=== PATIENT | female | born 1955 | race Caucasian/White ===

== ENCOUNTER 2017-11-14 21:10 | Observation (INO) | payer MEDICAID, OTHER ==
[2017-11-14 21:21] VITALS: BMI 29.1
--- NOTE | 2017-11-14 21:26 | ED PDOC ---
Arrival/HPI - General Time Seen by Provider: 11/14/17 21:16 Historian: Patient, Spouse, Family - History of Present Illness Narrative History of Present Illness (Text): 11/14/17 21:26 62 year old female, with no significant past medical history, presents to the emergency department accompanied by complaining of "not talking" As per , he reported that they both had an argument and found her not responding to any of his questions He became worried and called the ambulance for her to be evaluated. Daughter arrived and at bedside. Patient is responds to yes or no question. Patient denies any fever, chills, chest pain, shortness of breath, or any other complaints. 11/15/17 03:41 Symptom Onset: Sudden Symptom Course: Unchanged Activities at Onset: Light Context: Home Past Medical History - Provider Review Nursing Documentation Reviewed: Yes - Tetanus Immunization Tetanus Immunization: Unknown - Past Medical History Past Medical History: No Previous - Cardiac Hx Cardiac Disorders: Yes - Pulmonary Hx Respiratory Disorders: No - Neurological Hx Neurological Disorder: No - HEENT Hx HEENT Disorder: No - Renal Hx Renal Disorder: No - Endocrine/Metabolic Hx Endocrine Disorders: Yes Other/Comment: HYPERGLYCEMIA - Hematological/Oncological Hx Blood Disorders: No - Integumentary Hx Dermatological Disorder: No - Musculoskeletal/Rheumatological Hx Musculoskeletal Disorders: Yes - Gastrointestinal Hx Gastrointestinal Disorders: No - Genitourinary/Gynecological Hx Genitourinary Disorders: No - Psychiatric Hx Psychophysiologic Disorder: No Hx Depression: No Hx Emotional Abuse: No Hx Physical Abuse: No Hx Substance Use: No - Surgical History Hx Cholecystectomy: Yes Hx Hysterectomy: Yes - Suicidal Assessment Feels Threatened In Home Enviroment: No Family/Social History - Physician Review Nursing Documentation Reviewed: Yes Family/Social History: No Known Family HX Smoking Status: Never Smoked Hx Alcohol Use: No Hx Substance Use: No Hx Substance Use Treatment: No Allergies/Home Meds Allergies/Adverse Reactions: Allergies No Known Allergies Allergy (Verified 11/14/17 21:30) Review of Systems - Physician Review All systems were reviewed & negative as marked: Yes - Review of Systems Constitutional: absent: Fevers, Other (Chills) Respiratory: absent: SOB Cardiovascular: absent: Chest Pain Physical Exam Vital Signs Reviewed: Yes Vital Signs Temp Pulse Resp BP Pulse Ox 11/15/17 02:50 98.6 F 72 16 136/84 99 11/14/17 21:21 98.1 F 63 18 138/76 98 Temperature: Afebrile Blood Pressure: Normal Pulse: Regular Respiratory Rate: Normal Appearance: Positive for: Well-Appearing, Non-Toxic, Comfortable Pain Distress: None Mental Status: Positive for: other (Alert and answering to yes or no questions) Finger Stick Blood Glucose: 139 - Systems Exam Head: Present: Atraumatic, Normocephalic Pupils: Present: PERRL Extroacular Muscles: Present: EOMI Conjunctiva: Present: Normal Mouth: Present: Moist Mucous Membranes Neck: Present: Normal Range of Motion Respiratory/Chest: Present: Clear to Auscultation, Good Air Exchange. No: Respiratory Distress, Accessory Muscle Use Cardiovascular: Present: Regular Rate and Rhythm, Normal S1, S2. No: Murmurs Abdomen: No: Tenderness, Distention, Peritoneal Signs Back: Present: Normal Inspection Upper Extremity: Present: Normal Inspection. No: Cyanosis, Edema Lower Extremity: Present: Normal Inspection. No: Edema Neurological: Present: GCS=15, CN II-XII Intact, Speech Normal Skin: Present: Warm, Dry, Normal Color. No: Rashes Psychiatric: Present: Alert, Normal Insight, Normal Concentration Medical Decision Making ED Course and Treatment: 11/14/17 21:36 Impression: 62 year old female presents for complaints of feeling depressed and "not talking " after argument with . Patient only answering yes or no questions. strong clinical suspion conversion disorder, doubt cva Plan: -- EKG -- Labs -- Chest X-ray -- Ativan -- Urinalysis -- CT Head w/o contrast -- Reassess and disposition Progress Notes: 11/14/17 21:38 EKG shows NSR at [address]/T wave changes. Interpreted by me. 11/14/17 22:54 On re-evaluation, patient is drinking water with daughter on bedside. Patient was also seen walking to the bathroom. 11/14/17 22:55 CXR Impression: As read by me, negative 11/15/17 12:43 PES work seen and evaluated patient. EXAM: CT Head Without Intravenous Contrast Dictated and Authenticated by: Brad Nielson MD 11/15/2017 1:37 AM IMPRESSION: No evidence of an acute intracranial hemorrhage, midline shift or mass effect is identified. 11/15/17 01:38 Case discussed with neurologist Dr. Dos Santos who is aware and agrees with the plan. 11/15/17 01:49 Case discussed with Cover Mat Machine Operator and Dr. Arango who is aware and agrees with the plan. Accepts patient into hospitalist service. - Lab Interpretations Lab Results: 11/14/17 21:45 11/14/17 21:45 Lab Results 11/14/17 22:19: Urine Opiates Screen Negative, Urine Methadone Screen Negative, Ur Barbiturates Screen Negative, Ur Phencyclidine Scrn Negative, Ur Amphetamines Screen Negative, U Benzodiazepines Scrn Negative, U Oth Cocaine Metabols Negative, U Cannabinoids Screen Negative 11/14/17 22:19: Urine Color Yellow, Urine Appearance Clear, Urine pH 6.5, Ur Specific [place] 1.010, Urine Protein Negative, Urine Glucose (UA) Negative, Urine Ketones Negative, Urine Blood Negative, Urine Nitrate Negative, Urine Bilirubin Negative, Urine Urobilinogen 0.2, Ur Leukocyte Esterase Negative 11/14/17 21:45: Alcohol, Quantitative < 10 11/14/17 21:45: Salicylates < 1 L, Acetaminophen < 10.0 L 11/14/17 21:45: Sodium 140, Potassium 3.7, Chloride 103, Carbon Dioxide 25, Anion Gap 16, BUN 17, Creatinine 0.5 L, Est GFR ( Amer) > 60, Est GFR ( Non-Af Amer) > 60, Random Glucose 131 H, Calcium 9.4, Magnesium 2.3 H, Total Bilirubin 0.5, AST 20, ALT 38, Alkaline Phosphatase 78, Total Protein 7.4, Albumin 4.2, Globulin 3.2, Albumin/Globulin Ratio 1.3 11/14/17 21:45: WBC 5.5, RBC 4.72, Hgb 13.0, Hct 39.4, MCV 83.5, MCH 27.5, MCHC 33.0, RDW 13.5, Plt Count 258, MPV 10.1, Gran % 37.8 L, Lymph % (Auto) 52.3 H, [place] % (Auto) 6.2 H, Eos % (Auto) 3.3, Baso % (Auto) 0.4, Gran # 2.07, Lymph # ( Auto) 2.9, [place] # (Auto) 0.3, Eos # (Auto) 0.2, Baso # (Auto) 0.02 11/14/17 21:17: POC Glucose (mg/dL) 139 H I have reviewed the lab results: Yes - RAD Interpretation Radiology Orders: 11/14/17 21:24 CHEST PORTABLE [RAD] Stat 11/15/17 00:34 HEAD W/O CONTRAST [CT] Stat - EKG Interpretation Interpreted by ED Physician: Yes Type: 12 lead EKG - Medication Orders Current Medication Orders: Discontinued Medications Acetaminophen (Tylenol 325mg Tab) 650 mg PO Q6H PRN PRN Reason: Fever >100.4 F Last Admin: 11/15/17 21:29 Dose: 650 mg MAR Pain/Vitals Document 11/15/17 21:29 LGA (Rec: 11/15/17 21:30 LGA [id number]) Pain Reassessment Is This A Pain ReAssessment? Yes Sleep Is patient sleeping during reassessment? No Presence of Pain Presence of Pain Yes Location Left, Right or Bilateral Left Pain Location Body Site Shoulder Description Intermittent Scale Used Numeric Pain Behavior Rubbing Site Restlessness Aggravating Factors Changing Position Alleviating Factors Medication Aspirin (Aspirin) 325 mg PO STAT STA Stop: 11/15/17 01:52 Last Admin: 11/15/17 02:08 Dose: 325 mg Aspirin (Ecotrin) 81 mg PO DAILY [facility] Last Admin: 11/16/17 10:08 Dose: 81 mg Famotidine (Pepcid) 20 mg PO DAILY [facility] Last Admin: 11/16/17 10:08 Dose: 20 mg Sodium Chloride (Sodium Chloride 0.9%) 1,000 mls @ 100 mls/hr IV .Q10H [facility] Last Admin: 11/16/17 10:08 Dose: 100 mls/hr eMAR Start Stop Document 11/16/17 10:08 CD (Rec: 11/16/17 10:08 CD [id number]) Intravenous Solution Start Date 11/16/17 Start Time 10:08 Ibuprofen (Motrin Tab) 400 mg PO STAT STA Stop: 11/16/17 15:35 Last Admin: 11/16/17 17:07 Dose: Not Given Non-Admin Reason: Patient Refused Lorazepam (Ativan) 0.5 mg PO ONCE ONE PRN Reason: Protocol Stop: 11/14/17 21:42 Last Admin: 11/14/17 21:48 Dose: 0.5 mg Lorazepam (Ativan) 1 mg IVP ONCE STA PRN Reason: Protocol Stop: 11/15/17 13:36 Last Admin: 11/15/17 14:29 Dose: 1 mg IVP Administration Document 11/15/17 14:29 CD (Rec: 11/15/17 14:29 CD [id number]) Charges for Administration # of IVP Administrations 1 Behavioural Document 11/15/17 14:29 CD (Rec: 11/15/17 14:29 CD [id number]) Behavior Behavior for Medication: Anxiety Continuous pacing/restlessness Re-Assess: Reassess Psych Meds Document 11/15/17 14:59 CD (Rec: 11/15/17 16:00 CD [id number]) Reassess Psych Med Effective Lorazepam (Ativan) 0.5 mg PO BID JAVIER PRN Reason: Protocol Last Admin: 11/16/17 10:08 Dose: 0.5 mg Behavioural Document 11/16/17 10:08 CD (Rec: 11/16/17 10:08 CD [id number]) Nonmedicinal Nonmedicinal Interventions Therapeutic Communication Behavior Behavior for Medication: Anxiety Re-Assess: Reassess Psych Meds Document 11/16/17 11:08 CD (Rec: 11/16/17 11:20 CD [id number]) Reassess Psych Med Effective NIHSS Scale ([place]) Time Performed: 03:42 - How Severe is the [place]oke Baseline Level of Consciousness: 0=Alert LOC to Questions: 0=Both comments correct LOC to commands: 0=Obeys both correctly Best Gaze: 0=Normal Visual: 0=No visual loss Facial: 0=Normal Motor Arm - Left: 0=No drift Motor Arm - Right: 0=No drift Motor Leg - Left: 0=No drift Motor Leg - Right: 0=No drift Limb Ataxia: 0=Absent Sensory: 0=Normal Best Language: 3=Mute Dysarthia: 0=Normal articulation Extinction & Inattention (Neglect): 0=Normal, no object Score: 3 Risk Level: Minor Stroke Risk rTPA Inclusion/Exclusion - Refusal of Treatment Patient Refused Treatment: No - Inclusion Criteria for Altepase Patient is 18 years or Older: Yes The Clinical Diagnosis of Ischemic Stroke That is Causing a Potentially Disabling Neurological Deficit: No Time of Onset is Well Established to be Less Than 270 Minute Before Treatment Would Begin: Yes Risk/Benefit Discussed With Patient/Family Member Present: No - Scribe Statement The provider has reviewed the documentation as recorded by the Sara Mora Provider Scribe Attestation: All medical record entries made by the Scribe were at my direction and personally dictated by me. I have reviewed the chart and agree that the record accurately reflects my personal performance of the history, physical exam, medical decision making, and the department course for this patient. I have also personally directed, reviewed, and agree with the discharge instructions and disposition. Disposition/Present on Arrival - Present on Arrival Any Indicators Present on Arrival: No History of DVT/PE: No History of Uncontrolled Diabetes: No Urinary Catheter: No History Surgical Site Infection Following: None - Disposition Have Diagnosis and Disposition been Completed?: Yes Diagnosis: Aphasia, Conversion disorder Disposition: HOSPITALIZED Disposition Time: 02:00 Condition: GOOD
[2017-11-14 22:06] LABS: ACETAMINOPHEN < 10.0 ug/ml (10.0-20.0); BASO # 0.02 K/mm3 (0.0-2.0); BASO % 0.4 % (0.0-3.0); EOS # 0.2 (0.0-0.7); EOS % 3.3 % (1.5-5.0); GRAN # 2.07 (1.4-6.5); GRAN % 37.8 % (50.0-68.0); LYMPH # 2.9 (1.2-3.4); LYMPH % 52.3 % (22.0-35.0); MEAN CELL VOLUME 83.5 fl (80.0-105.0); MEAN CORPUSCULAR HEMOGLOBIN 27.5 pg (25.0-35.0); MEAN PLATELET VOLUME 10.1 fl (7.0-11.0); MONO # 0.3 (0.1-0.6); MONO % 6.2 % (1.0-6.0); RBC 4.72 10^6/uL (3.5-6.1); RED CELL DISTRIBUTION WIDTH 13.5 % (11.5-14.5); SALICYLATE < 1 mg/dL (2.0-20.0); WHITE BLOOD COUNT 5.5 10^3/ul (4.5-11.0)
[2017-11-14 22:07] LABS: ALB/GLOB RATIO 1.3 (1.1-1.8); ALBUMIN 4.2 g/dL (3.0-4.8); ALT/SGPT 38 U/L (7-56); AST/SGOT 20 U/L (14-36); BLOOD UREA NITROGEN 17 mg/dL (7-21); CALCIUM 9.4 mg/dL (8.4-10.5); GFR AFRICAN-AMERICAN > 60; GFR NON-AFRICAN AMERICAN > 60
[2017-11-14 22:24] LABS: PH,URINE 6.5 (4.7-8.0); URINE BILIRUBIN NEGATIVE (NEGATIVE); URINE BLOOD NEGATIVE (NEGATIVE); URINE GLUCOSE (UA) NEGATIVE (NEGATIVE); URINE LEUKOCYTE ESTERASE NEGATIVE Leu/uL (NEGATIVE); URINE PROTEIN NEGATIVE mg/dL (<30 mg/dL); URINE UROBILINOGEN 0.2 E.U./dL (<1 E.U./dL)
[2017-11-14 22:41] LABS: URINE APPEARANCE CLEAR (CLEAR); URINE COLOR YELLOW (YELLOW)
[2017-11-14 22:45] LABS: BARBITURATES, UR NEGATIVE (NEGATIVE); BENZODIAZEPINES, UR NEGATIVE (NEGATIVE); OPIATES, UR NEGATIVE (NEGATIVE); PHENCYCLIDINE, UR NEGATIVE (NEGATIVE)
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
[2017-11-15] MEDS: Sodium Chloride 0.9% 1,000 ML IV SCH ×2 (04:05→14:33)
[2017-11-15 06:43] VITALS: O2SAT 98
[2017-11-15 07:49] LABS: HEMOGLOBIN 11.7 g/dL (12.0-16.0); MEAN CELL VOLUME 83.3 fl (80.0-105.0); MEAN CORPUSCULAR HEMOGLOBIN 27.1 pg (25.0-35.0); MEAN CORPUSCULAR HGB CONC 32.6 g/dl (31.0-37.0); MEAN PLATELET VOLUME 10.2 fl (7.0-11.0); RBC 4.31 10^6/uL (3.5-6.1); RED CELL DISTRIBUTION WIDTH 13.6 % (11.5-14.5); WHITE BLOOD COUNT 4.6 10^3/ul (4.5-11.0)
[2017-11-15 08:01] LABS: ALB/GLOB RATIO 1.3 (1.1-1.8); ALBUMIN 3.5 g/dL (3.0-4.8); ALT/SGPT 30 U/L (7-56); AST/SGOT 20 U/L (14-36); BLOOD UREA NITROGEN 13 mg/dL (7-21); CALCIUM 8.9 mg/dL (8.4-10.5); GFR AFRICAN-AMERICAN > 60; GFR NON-AFRICAN AMERICAN > 60; HDL CHOLESTEROL 44 mg/dL (29-60)
[2017-11-15 08:08] LABS: LDL CHOLESTEROL 147 mg/dL (0-129)
--- NOTE | 2017-11-15 08:26 | CARD ---
APPROVED REPORT Date of service: 11/14/2017 EKG Measurement Heart [id number] <Conclusion> Normal sinus rhythm Nonspecific ST abnormality Abnormal ECG
--- NOTE | 2017-11-15 08:41 | RAD ---
Date of service: 11/14/2017 HISTORY: psych COMPARISON: 07/03/2013. FINDINGS: LUNGS: The lungs are well inflated and clear. PLEURA: No significant pleural effusion identified, no pneumothorax apparent. CARDIOVASCULAR: There is mild cardiomegaly. OSSEOUS STRUCTURES: No significant abnormalities. VISUALIZED UPPER ABDOMEN: Normal. OTHER FINDINGS: None. IMPRESSION: No active pulmonary disease.
--- NOTE | 2017-11-15 09:06 | CT ---
Date of service: 11/15/2017 PROCEDURE: CT HEAD WITHOUT CONTRAST. HISTORY: ams COMPARISON: None available. TECHNIQUE: Axial computed tomography images were obtained through the head/brain without intravenous contrast. Radiation dose: Total exam DLP = 846 mGy-cm. This CT exam was performed using one or more of the following dose reduction techniques: Automated exposure control, adjustment of the mA and/or kV according to patient size, and/or use of iterative reconstruction technique. FINDINGS: HEMORRHAGE: No intracranial hemorrhage. BRAIN: No mass effect or edema. No atrophy or chronic microvascular ischemic changes. VENTRICLES: Unremarkable. No hydrocephalus. CALVARIUM: Unremarkable. PARANASAL SINUSES: Unremarkable as visualized. No significant inflammatory changes. MASTOID AIR CELLS: Unremarkable as visualized. No inflammatory changes. OTHER FINDINGS: The report concurs with the preliminary [facility] report IMPRESSION: No acute findings
--- NOTE | 2017-11-15 10:39 | MRI ---
Date of service: 11/15/2017 PROCEDURE: MRI BRAIN WITHOUT CONTRAST HISTORY: aphasia COMPARISON: Noncontrast head CT from 11/15/2017 TECHNIQUE: Multiplanar, multisequence MR images of the brain were obtained without intravenous contrast enhancement. FINDINGS: HEMORRHAGE: None DWI: No evidence of an acute or early subacute infarction. BRAIN PARENCHYMA: Andrade-white matter differentiation is preserved. There is no mass, mass effect or abnormal extra-axial fluid collection. There is no territorial infarction. The midline sagittal structures are normal. VENTRICLES: There is mild age-related global parenchymal volume loss and proportionate enlargement of the ventricles and cortical sulci. CRANIUM: There is normal bone marrow signal pattern. ORBITS: Grossly unremarkable. PARANASAL SINUSES/MASTOIDS: Predominantly clear. VASCULAR SYSTEM: There are normal signal voids in the larger intracranial arteries. OTHER FINDINGS: None. IMPRESSION: No acute intracranial abnormality. Mild age-related global parenchymal volume loss.
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
--- NOTE | 2017-11-15 21:40 | CARD ---
APPROVED REPORT Date of service: 11/15/2017 EXAM: Two-dimensional and M-mode echocardiogram with Doppler and color Doppler. INDICATION Syncope 2D DIMENSIONS Left Atrium (2D)3.9 (1.6-4.0cm)IVSd1.0 (0.7-1.1cm) LVDd4.0 (3.9-5.9cm)PWd1.0 (0.7-1.1cm) LVDs2.6 (2.5-4.0cm)FS (%) 35.5 % LVEF (%)65.5 (>50%) M-Mode DIMENSIONS Aortic Root3.40 (2.2-3.7cm)Aortic Cusp Exc.1.90 (1.5-2.0cm) Aortic Valve AoV Peak Nkgykzbn943.0cm/Yonatan Peak GR.7mmHg Mitral Valve MV E Tqxwgelh00.5cm/sMV A Zsrxjurn70.9cm/sE/A ratio0.9 TDI Lateral E' Peak V10.40cm/sMedial E' Peak V6.92cm/sE/Lateral E'6.6 E/Medial E'9.9 Tricuspid Valve TR Peak Olvvofcu562eg/sRAP KGDJQAAN90soNiAN Peak Gr.23mmHg [id number] LEFT VENTRICLE The left ventricle is normal size. There is normal left ventricular wall thickness. The left ventricular function is normal. The left ventricular ejection fraction is within the normal range. There is normal LV segmental wall motion. Transmitral Doppler flow pattern is Grade I-abnormal relaxation pattern. RIGHT VENTRICLE The right ventricle is normal size. There is normal right ventricular wall thickness. The right ventricular systolic function is normal. ATRIA The left atrium size is normal. The right atrium size is normal. AORTIC VALVE The aortic valve is thickened but opens well. No aortic regurgitation is present. There is no aortic valvular stenosis. MITRAL VALVE The mitral valve is normal in structure. Mitral regurgitation is trace. There is no mitral valve stenosis. TRICUSPID VALVE The tricuspid valve is normal in structure. There is trace to mild tricuspid regurgitation. GREAT VESSELS The aortic root is normal in size. The IVC is normal in size and collapses >50% with inspiration. PERICARDIAL EFFUSION There is a trace loculated anterior pericardial effusion. <Conclusion> The left ventricle is normal size. There is normal left ventricular wall thickness. The left ventricular function is normal. The left ventricular ejection fraction is within the normal range. There is normal LV segmental wall motion. Transmitral Doppler flow pattern is Grade I-abnormal relaxation pattern. There is trace to mild tricuspid regurgitation.
--- NOTE | 2017-11-16 00:59 | CON ---
Copied To: Hayley De Leon MD Attending MD: Hayley De Leon MD DATE: 11/15/2017 HISTORY OF PRESENT ILLNESS: In short, the patient is 62-year-old female from [place]. The patient was brought in by her for evaluation of not talking secondary to argument. The patient was not responding to any questions and family became worried and brought the patient to the hospital. Psych consult was called for evaluation of such behavior. This clinical writer attempted to speak to the patient. The patient was found to be laying in bed, not moving with eyes closed. The patient was able to open her eyes for short period of time and closing them back. The patient was communicating with this clinical writer yes, no answers by nodding her head. This clinical writer asked permission to talk to her family. The patient's and patient's son, Kenyon was next to the patient. As per family, the patient was upset over the fact that her son in getting through divorce and she was not able to see her two grandsons that often, last time pt saw her grand kids was February 2017, over the weekend two grandson visited her and pt was very happy to see them. The patient never verbalized any thoughts of harming herself. The patient did not verbalize that she is depressed. The patient was stressed out about the fact that she lost her insurance and it was not renewed, but acting as her normal behavior up until yesterday evening. The patient does not have any history of mental illness. The patient does not have history of suicidal attempts. She is not taking any drugs. The patient is very active in the community. She goes to denominational. Also, the patient goes to adult day treatment program here in [place] from 9 o'clock till 1:30 as per family. PHYSICAL EXAMINATION: VITAL SIGNS: This clinical writer reviewed vital signs, seems to be stable. Temperature 97.9, pulse is 53, blood pressure 133/94, respiration 18, oxygen saturation is 94. MEDICATIONS: Reviewed. LABORATORY DATA: Reviewed. TSH is 11.3. Urinalysis negative. Toxicology is negative. Reports reviewed. Brain MRI within normal limits. Head CT scan within normal limits. Echocardiogram was done, but there is no result back yet. Electrocardiogram within normal limits. Nonspecific ST abnormalities. CT and MRI of the head WNL. MENTAL STATUS EXAMINATION: As this clinical writer described above. IMPRESSION: This clinical writer had prolonged conversation with Dr. Dickson. The patient seems to be in acute catatonia which could be related to stress or medical issues, TSH was elevated. Plan: This clinical writer advised to give IV push of Ativan 1 mg to r/o catatonia, Within 1 hour after ativan was given patient started to talk, ask for food. Most likely the patient had acute catatonia due to stress or medical issues which is my differential diagnosis. Advised endocrinology involvement, as well as neurology involvement but it is up to the medical team. We will reassess the patient tomorrow and advise accordingly. As of now, the patient does not meet the criteria to be admitted to the Psychiatric Inpatient Unit. If the patient requires, we will give information about outpatient clinics in the community. The patient's son, phone number is [phone]. His name is Kenyon. Collaterals are appreciated. Should you have any questions give me a call back. We will follow up and advise accordingly. Hayley De Leon MD SHAYY
[2017-11-16] MEDS: Sodium Chloride 0.9% 1,000 ML IV SCH ×2 (03:01→10:08)
[2017-11-16 03:10] VITALS: RESP 16
[2017-11-16 06:20] LABS: HEMOGLOBIN 11.6 g/dL (12.0-16.0); MEAN CELL VOLUME 84.4 fl (80.0-105.0); MEAN PLATELET VOLUME 9.9 fl (7.0-11.0); RBC 4.29 10^6/uL (3.5-6.1); RED CELL DISTRIBUTION WIDTH 13.7 % (11.5-14.5); WHITE BLOOD COUNT 3.9 10^3/ul (4.5-11.0)
[2017-11-16 07:49] LABS: ALB/GLOB RATIO 1.2 (1.1-1.8); ALBUMIN 3.2 g/dL (3.0-4.8); BLOOD UREA NITROGEN 14 mg/dL (7-21); CALCIUM 8.3 mg/dL (8.4-10.5); GFR AFRICAN-AMERICAN > 60; GFR NON-AFRICAN AMERICAN > 60
[2017-11-16 07:50] LABS: ALT/SGPT 26 U/L (7-56); AST/SGOT 20 U/L (14-36)
[2017-11-16 12:03] VITALS: BP 144/83; PULSE 63; TEMP 98.1
--- NOTE | 2017-11-16 13:43 | PN ---
Copied To: Hayley De Leon MD Attending MD: Hayley De Leon MD DATE: 11/16/2017 SUBJECTIVE: The patient was followed up. The patient presented much better to compare with yesterday. The patient is moving. The patient is able to talk and communicate her needs, but the patient still has some psychomotor retardation for what this law writer will start 0.5 mg of Ativan, 2 mg scheduled. The patient was interviewed today. The patient was able to communicate her needs. The patient reported that she feels better. The patient denied feeling depressed. Denied thoughts of harming herself or others. Denied intent or plan. The patient denied previous history of mental illness. Denied feeling depressed or denied history of suicidal attempts in the past. VITAL SIGNS: Stable. Temperature 98.4, pulse is 68, blood pressure 101/64, respiration 16, oxygen saturation is 98. MEDICATIONS: Reviewed. Tylenol, aspirin, Pepcid, Ativan 0.5 mg twice a day scheduled, and sodium chloride. Risk, benefits and alternatives discussed with the patient. LABORATORY DATA: Reviewed. WBC cells 3.9 today. TSH 11.3. The rest seems to be within normal limits. Toxicology negative. MENTAL STATUS EXAMINATION: As this law writer described above, the patient is alert and oriented, pleasant, cooperative. Speech is faster to compare with yesterday, but the patient still has psychomotor retardation. The patient denied feeling depressed. Denied thoughts of harming herself or others. Denied intent or plan. Mood described, "I feel better." Affect is more reactive, mood congruent. Thought process coherent and goal directed. Thought content, the patient denied visual, auditory, or tactile hallucinations. The patient denied thoughts of harming herself or others. The patient does not present in difficulty. IMPRESSION: The patient presented with acute catatonia, which is improving on small dose of Ativan. Ativan 0.5 mg twice a day scheduled. Risk, benefits and alternatives discussed with the patient. We will follow up and advise accordingly. Endocrinology consult recommended. Neurologist saw the patient. The patient is not in any imminent danger to self or others. Should you have any questions give me a call back. Thank you very much. Hayley De Leon, MD : 11/16/2017 10:03:36 [facility] # [id number]
--- NOTE | 2017-11-16 14:48 | RAD ---
Date of service: 11/16/2017 PROCEDURE: Radiographs of the Left Shoulder HISTORY: L shoulder pain COMPARISON: No prior. FINDINGS: BONES: Normal. No fracture. JOINTS: Normal. Glenohumeral and acromioclavicular joints preserved. No osteoarthritis. SOFT TISSUES: Normal. OTHER FINDINGS: None. IMPRESSION: Normal radiographs of the left shoulder.
--- NOTE | 2017-11-16 15:36 | CP.PCM.DIS ---
<Tyrone Moss - Last Filed: 11/16/17 21:19> Provider - Provider Date of Admission: 11/15/17 01:51 Attending physician: Allie Dickson MD Primary care physician: Costa Jensen MD Consults: Neuro- Dr. Dos Santos Psych - Dr. Mccrary Time Spent in preparation of Discharge (in minutes): 45 Hospital Course - Lab Results Lab Results: Most Recent Lab Values WBC 3.9 10^3/ul (4.5-11.0) L 11/16/17 05:25 RBC 4.29 10^6/uL (3.5-6.1) 11/16/17 05:25 Hgb 11.6 g/dL (12.0-16.0) L 11/16/17 05:25 Hct 36.2 % (36.0-48.0) 11/16/17 05:25 MCV 84.4 fl (80.0-105.0) 11/16/17 05:25 MCH 27.0 pg (25.0-35.0) 11/16/17 05:25 MCHC 32.0 g/dl (31.0-37.0) 11/16/17 05:25 RDW 13.7 % (11.5-14.5) 11/16/17 05:25 Plt Count 222 10^3/uL (120.0-450.0) 11/16/17 05:25 MPV 9.9 fl (7.0-11.0) 11/16/17 05:25 Gran % 37.8 % (50.0-68.0) L 11/14/17 21:45 Lymph % (Auto) 52.3 % (22.0-35.0) H 11/14/17 21:45 Gage % (Auto) 6.2 % (1.0-6.0) H 11/14/17 21:45 Eos % (Auto) 3.3 % (1.5-5.0) 11/14/17 21:45 Baso % (Auto) 0.4 % (0.0-3.0) 11/14/17 21:45 Gran # 2.07 (1.4-6.5) 11/14/17 21:45 Lymph # (Auto) 2.9 (1.2-3.4) 11/14/17 21:45 Gage # (Auto) 0.3 (0.1-0.6) 11/14/17 21:45 Eos # (Auto) 0.2 (0.0-0.7) 11/14/17 21:45 Baso # (Auto) 0.02 K/mm3 (0.0-2.0) 11/14/17 21:45 Sodium 142 mmol/L (132-148) 11/16/17 05:25 Potassium 4.0 mmol/L (3.6-5.0) 11/16/17 05:25 Chloride 110 mmol/L (98-107) H 11/16/17 05:25 Carbon Dioxide 23 mmol/L (21-33) 11/16/17 05:25 Anion Gap 13 (10-20) 11/16/17 05:25 BUN 14 mg/dL (7-21) 11/16/17 05:25 Creatinine 0.5 mg/dl (0.7-1.2) L 11/16/17 05:25 Est GFR ( Amer) > 60 11/16/17 05:25 Est GFR (Non-Af Amer) > 60 11/16/17 05:25 POC Glucose (mg/dL) 139 mg/dL (65-110) H 11/14/17 21:17 Random Glucose 102 mg/dL (70-110) 11/16/17 05:25 Hemoglobin A1c 6.0 % (4.2-6.5) 11/15/17 03:00 Calcium 8.3 mg/dL (8.4-10.5) L 11/16/17 05:25 Phosphorus 3.7 mg/dL (2.5-4.5) 11/16/17 05:25 Magnesium 2.0 mg/dL (1.7-2.2) 11/16/17 05:25 Total Bilirubin 0.3 mg/dL (0.2-1.3) 11/16/17 05:25 AST 20 U/L (14-36) 11/16/17 05:25 ALT 26 U/L (7-56) 11/16/17 05:25 Alkaline Phosphatase 65 U/L (38-126) 11/16/17 05:25 Total Protein 5.9 g/dL (5.8-8.3) 11/16/17 05:25 Albumin 3.2 g/dL (3.0-4.8) 11/16/17 05:25 Globulin 2.7 gm/dL 11/16/17 05:25 Albumin/Globulin Ratio 1.2 (1.1-1.8) 11/16/17 05:25 Triglycerides 110 mg/dL (35-160) 11/15/17 07:00 Cholesterol 232 mg/dL (130-200) H 11/15/17 07:00 LDL Cholesterol Direct 147 mg/dL (0-129) H 11/15/17 07:00 HDL Cholesterol 44 mg/dL (29-60) 11/15/17 07:00 Free T4 0.90 ng/dL (0.78-2.19) 11/15/17 08:38 TSH 3rd Generation 11.30 mIU/mL (0.46-4.68) H 11/15/17 07:00 Urine Color Yellow (YELLOW) 11/14/17 22:19 Urine Appearance Clear (CLEAR) 11/14/17 22:19 Urine pH 6.5 (4.7-8.0) 11/14/17 22:19 Ur Specific [place] 1.010 (1.005-1.035) 11/14/17 22:19 Urine Protein Negative mg/dL (<30 mg/dL) 11/14/17 22:19 Urine Glucose (UA) Negative mg/dL (NEGATIVE) 11/14/17 22:19 Urine Ketones Negative mg/dL (NEGATIVE) 11/14/17 22:19 Urine Blood Negative (NEGATIVE) 11/14/17 22:19 Urine Nitrate Negative (NEGATIVE) 11/14/17 22:19 Urine Bilirubin Negative (NEGATIVE) 11/14/17 22:19 Urine Urobilinogen 0.2 E.U./dL (<1 E.U./dL) 11/14/17 22:19 Ur Leukocyte Esterase Negative Cam/uL (NEGATIVE) 11/14/17 22:19 Salicylates < 1 mg/dL (2.0-20.0) L 11/14/17 21:45 Urine Opiates Screen Negative (NEGATIVE) 11/14/17 22:19 Urine Methadone Screen Negative (NEGATIVE) 11/14/17 22:19 Acetaminophen < 10.0 ug/ml (10.0-20.0) L 11/14/17 21:45 Ur Barbiturates Screen Negative (NEGATIVE) 11/14/17 22:19 Ur Phencyclidine Scrn Negative (NEGATIVE) 11/14/17 22:19 Ur Amphetamines Screen Negative (NEGATIVE) 11/14/17 22:19 U Benzodiazepines Scrn Negative (NEGATIVE) 11/14/17 22:19 U Oth Cocaine Metabols Negative (NEGATIVE) 11/14/17 22:19 U Cannabinoids Screen Negative (NEGATIVE) 11/14/17 22:19 Alcohol, Quantitative < 10 mg/dL (0-10) 11/14/17 21:45 - Hospital Course Hospital Course: Tyrone Moss, PGY-1 Discharge Summary for Hospitalist Service HPI: Ms. Salazar is a 62 yo Persian speaking female with no PMH who presents to ED for not being able to speak or communicate properly. Patient was accompanied by who reported that they both had an argument, after which he left and when he came back, he found her not responding to any of his questions. He became worried and called the ambulance for her to be evaluated. Patient is currently not responding to questions, only yes/no questions when asked by the daughter who is at bedside. The patient is complaining of right shoulder and hip pain, as well as a headache. The daughter is unsure of any medical history that the patient has, or medications that she should be on. Hospital Course: 62 y.o. F with HLD, HTN, and borderline diabetes mellitus 2 without medications who was admitted to the hospital status post an argument at home, at which point the patient was awake and alert but unable to verbally respond to initiation from others. Orthostatics at that time were negative. Initial CT shows no acute abnormalities. Neurology was consulted. For patient's acute aphasia, UDS was ordered, which came back positive only for salicylates and acetaminophen. Neuro checks and fall risks were put in place as well. MRI brain showed no acute intracranial abnormalities other than age related global parenchymal volume loss. Neuro labeled symptoms as likely conversion disorder. Considering cardiac as an etiology of the symptoms, echo was ordered and showed an EF of 65.5% with mild tricuspid regurgitation. Psych was consulted and patient was classified as having catatonic episodes. Patient was started on Ativan per psych recommendations. Patient complained of L shoulder pain, and shoulder x-ray was ordered. Report shows no acute fractures or disease, and patient was given Motrin which brought relief. HBa1c was ordered to get baseline sugar control and was found to be 6.0. A lipid panel was ordered as well and showed cholesterol 232, LDL 147, HDL 44 Patient is hemodynamically stable and neurology workup has been completed. All questions were answered to patient's and family satisfaction, and patient was prepared for discharge with medications and instructions for follow up. Patient seen, case reviewed and plan discussed with Dr. Dickson. Tyrone Moss, PGY-1 Discharge Exam - Head Exam Head Exam: NORMAL INSPECTION, NORMOCEPHALIC - Eye Exam Eye Exam: EOMI, Normal appearance Pupil Exam: PERRL - ENT Exam ENT Exam: Mucous Membranes Moist Discharge Plan - Discharge Medications Prescriptions: Aspirin [Ecotrin] 81 mg PO DAILY #30 tabec Atorvastatin Calcium [Lipitor] 20 mg PO DAILY #30 tablet LORazepam [Ativan] 0.5 mg PO BID #4 tab - Follow Up Plan Condition: GOOD Disposition: HOME/ ROUTINE Patient education suggested?: Yes Instructions: Aphasia (DC), Shoulder Pain (DC) Additional Instructions: FOLLOW UP WITH Dr. Jensen WITHIN 1 WEEK. Patient should follow up with Dr. Melendez psychiatrist for continued evaluation. TAKE MOTRIN FOR SHOULDER PAIN NEEDED. Patient was given prescription for statin, aspirin, and Ativan 0.5 mg PO BID for 2 more days for catatonic episode. Patient educated with family regarding hospital course and all questions were answered. If symptoms reoccur or worsen, please return to nearest emergency department. Referrals: Costa Jensen MD [Primary Care Provider] - Follow up with primary Pilar Melendez MD [Staff Provider] - <Allie Dickson - Last Filed: 11/17/17 16:28> Provider - Provider Date of Admission: 11/15/17 01:51 Attending physician: Allie Dickson MD Primary care physician: Costa Jensen MD Hospital Course - Lab Results Lab Results: Most Recent Lab Values WBC 3.9 10^3/ul (4.5-11.0) L 11/16/17 05:25 RBC 4.29 10^6/uL (3.5-6.1) 11/16/17 05:25 Hgb 11.6 g/dL (12.0-16.0) L 11/16/17 05:25 Hct 36.2 % (36.0-48.0) 11/16/17 05:25 MCV 84.4 fl (80.0-105.0) 11/16/17 05:25 MCH 27.0 pg (25.0-35.0) 11/16/17 05:25 MCHC 32.0 g/dl (31.0-37.0) 11/16/17 05:25 RDW 13.7 % (11.5-14.5) 11/16/17 05:25 Plt Count 222 10^3/uL (120.0-450.0) 11/16/17 05:25 MPV 9.9 fl (7.0-11.0) 11/16/17 05:25 Gran % 37.8 % (50.0-68.0) L 11/14/17 21:45 Lymph % (Auto) 52.3 % (22.0-35.0) H 11/14/17 21:45 Gage % (Auto) 6.2 % (1.0-6.0) H 11/14/17 21:45 Eos % (Auto) 3.3 % (1.5-5.0) 11/14/17 21:45 Baso % (Auto) 0.4 % (0.0-3.0) 11/14/17 21:45 Gran # 2.07 (1.4-6.5) 11/14/17 21:45 Lymph # (Auto) 2.9 (1.2-3.4) 11/14/17 21:45 Gage # (Auto) 0.3 (0.1-0.6) 11/14/17 21:45 Eos # (Auto) 0.2 (0.0-0.7) 11/14/17 21:45 Baso # (Auto) 0.02 K/mm3 (0.0-2.0) 11/14/17 21:45 Sodium 142 mmol/L (132-148) 11/16/17 05:25 Potassium 4.0 mmol/L (3.6-5.0) 11/16/17 05:25 Chloride 110 mmol/L (98-107) H 11/16/17 05:25 Carbon Dioxide 23 mmol/L (21-33) 11/16/17 05:25 Anion Gap 13 (10-20) 11/16/17 05:25 BUN 14 mg/dL (7-21) 11/16/17 05:25 Creatinine 0.5 mg/dl (0.7-1.2) L 11/16/17 05:25 Est GFR ( Amer) > 60 11/16/17 05:25 Est GFR (Non-Af Amer) > 60 11/16/17 05:25 POC Glucose (mg/dL) 139 mg/dL (65-110) H 11/14/17 21:17 Random Glucose 102 mg/dL (70-110) 11/16/17 05:25 Hemoglobin A1c 6.0 % (4.2-6.5) 11/15/17 03:00 Calcium 8.3 mg/dL (8.4-10.5) L 11/16/17 05:25 Phosphorus 3.7 mg/dL (2.5-4.5) 11/16/17 05:25 Magnesium 2.0 mg/dL (1.7-2.2) 11/16/17 05:25 Total Bilirubin 0.3 mg/dL (0.2-1.3) 11/16/17 05:25 AST 20 U/L (14-36) 11/16/17 05:25 ALT 26 U/L (7-56) 11/16/17 05:25 Alkaline Phosphatase 65 U/L (38-126) 11/16/17 05:25 Total Protein 5.9 g/dL (5.8-8.3) 11/16/17 05:25 Albumin 3.2 g/dL (3.0-4.8) 11/16/17 05:25 Globulin 2.7 gm/dL 11/16/17 05:25 Albumin/Globulin Ratio 1.2 (1.1-1.8) 11/16/17 05:25 Triglycerides 110 mg/dL (35-160) 11/15/17 07:00 Cholesterol 232 mg/dL (130-200) H 11/15/17 07:00 LDL Cholesterol Direct 147 mg/dL (0-129) H 11/15/17 07:00 HDL Cholesterol 44 mg/dL (29-60) 11/15/17 07:00 Free T4 0.90 ng/dL (0.78-2.19) 11/15/17 08:38 TSH 3rd Generation 11.30 mIU/mL (0.46-4.68) H 11/15/17 07:00 Urine Color Yellow (YELLOW) 11/14/17 22:19 Urine Appearance Clear (CLEAR) 11/14/17 22:19 Urine pH 6.5 (4.7-8.0) 11/14/17 22:19 Ur Specific [place] 1.010 (1.005-1.035) 11/14/17 22:19 Urine Protein Negative mg/dL (<30 mg/dL) 11/14/17 22:19 Urine Glucose (UA) Negative mg/dL (NEGATIVE) 11/14/17 22:19 Urine Ketones Negative mg/dL (NEGATIVE) 11/14/17 22:19 Urine Blood Negative (NEGATIVE) 11/14/17 22:19 Urine Nitrate Negative (NEGATIVE) 11/14/17 22:19 Urine Bilirubin Negative (NEGATIVE) 11/14/17 22:19 Urine Urobilinogen 0.2 E.U./dL (<1 E.U./dL) 11/14/17 22:19 Ur Leukocyte Esterase Negative Cam/uL (NEGATIVE) 11/14/17 22:19 Salicylates < 1 mg/dL (2.0-20.0) L 11/14/17 21:45 Urine Opiates Screen Negative (NEGATIVE) 11/14/17 22:19 Urine Methadone Screen Negative (NEGATIVE) 11/14/17 22:19 Acetaminophen < 10.0 ug/ml (10.0-20.0) L 11/14/17 21:45 Ur Barbiturates Screen Negative (NEGATIVE) 11/14/17 22:19 Ur Phencyclidine Scrn Negative (NEGATIVE) 11/14/17 22:19 Ur Amphetamines Screen Negative (NEGATIVE) 11/14/17 22:19 U Benzodiazepines Scrn Negative (NEGATIVE) 11/14/17 22:19 U Oth Cocaine Metabols Negative (NEGATIVE) 11/14/17 22:19 U Cannabinoids Screen Negative (NEGATIVE) 11/14/17 22:19 Alcohol, Quantitative < 10 mg/dL (0-10) 11/14/17 21:45 Attending/Attestation - Attestation I have personally seen and examined this patient.: Yes I have fully participated in the care of the patient.: Yes I have reviewed all pertinent clinical information, including history, physical exam and plan: Yes Notes (Text): 11/17/17 16:25 Medical record note made by the resident after discussion with my direction and input after the patient was personally seen and examined by me. I have reviewed the chart and agree that the record accurately reflects by personal performance of the history, physical exam, data review, and medical decision-making, in the course for the patient. I have also personally directed the plan of care. 62 yrs old F with PMH of HTN, and impaired glucose tolerance not on any medication was admitted with Aphasia, started after she had argument with the family.CT scan of head, MRI and telemetry is unremarkable.Patient was evaluated by Neurology and Psychiatry.Patient was given Lorazepam, she has responded well.She is talking and is eating at the time of discharge. She will follow up with PCP and Psychiatry.
--- NOTE | 2017-11-17 09:28 | CP.PCM.PCO ---
Physician Communication Note - Physician Communication Note Physician Communication Note: pt was d/c
== END 2017-11-16 17:14 | disposition home or self-care (01) ==
LOC: ED 21:10 → ERH 11-15 01:51 → 2RNO 11-15 03:46 → 3RSO 11-16 13:42
PROVIDERS: ADMIT Hospitalist; ATTEND Internal Medicine
DX: R47.01 Aphasia (principal); I10 Essential (primary) hypertension; E78.5 Hyperlipidemia, unspecified; R73.02 Impaired glucose tolerance (oral); F44.9 Dissociative and conversion disorder, unspecified; F06.1 Catatonic disorder due to known physiological condition; Z90.49 Acquired absence of other specified parts of digestive tract; Z90.710 Acquired absence of both cervix and uterus
CPT/HCPCS: 36415; 70450; 70551; 71045; 73030; 80053; 80061; 80320; 80324; 80329; 80345; 80346; 80349; 80353; 80358; 80361; 81003; 82948; 83036; 83735; 83992; 84100; 84439; 84443; 85025; 85027; 92610; 93005; 93306; 95812; 96374; 97110; 97162; 97530; 99285; G0378; G8978; G8979; G8996; G8997; G8998; J2060; J7030